=== PATIENT | male | born 2005 | race Caucasian/White ===

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

== ENCOUNTER 2024-05-12 18:58 | Emergency (ER) | payer MEDICAID, SELFPAY ==
[2024-05-12 18:59] VITALS: BP 154/106; PULSE 100; RESP 20; TEMP 37.5; O2SAT 96; BMI 19.8
--- NOTE | 2024-05-12 19:10 | EKG12_ITS ---
Test Reason : DYSRHYTHMIA Blood Pressure : / mmHG Vent. Rate : 088 BPM Atrial Rate : 088 BPM P-R Int : 126 ms QRS Dur : 080 ms QT Int : 364 ms P-R-T Axes : 068 055 067 degrees QTc Int : 440 ms Normal sinus rhythm with sinus arrhythmia Normal ECG Confirmed by RAFA IZAGUIRRE, REE ([id number]), clinical editor EDSON KC ([id number]) on 05/14/2024 8:06:46 AM Referred By: Confirmed By:REE CRAIG MD
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
[2024-05-12 19:19] LABS: Absolute Lymphocyte Count 1.47 X10^3/uL (0.83-4.51); Absolute Neutrophil Count 5.8 X10^3/uL (2.0-7.7); Basophil# 0.04 X10^3/uL; Basophil% 0.5 % (0-1); Eosinophil# 0.06 X10^3/uL; Eosinophils% 0.8 % (0-5); Hematocrit 45.9 % (40-54); Lymphocyte # 1.47 X10^3/ul (0.83-4.51); Lymphocyte % 18.7 % (19-41); Mean Corp Hgb Conc 34.9 g/dL (32-36); Mean Corpuscular Hgb 30.6 pg (27.0-32.0); Mean Corpuscular Volume 87.8 fL (80-94); Mean Platelet Vol. 10.9 fl (6.2-12.0); Monocyte# 0.47 X10^3/uL; NRBC Flagged by Analyzer 0 % (0-5); Neutrophil # 5.83 X10^3/uL (2.7-7.7); Neutrophil % 73.9 % (47-70); Platelet Count 207 K/mm3 (150-450); RBC Distribution Width CV 12.5 % (11.6-14.6); RBC Distribution Width SD 40.4 fl (35.1-43.9); Red Blood Count 5.23 M/mm3 (4.6-6.2); White Blood Count 7.9 K/mm3 (4.4-11.0)
[2024-05-12] MEDS: 0.9% Normal Saline (1000mL) 1,000 ML 999 ML IV (19:22)
[2024-05-12 19:38] LABS: ALB/GLOB Ratio 1.3 RATIO (0.9-2.4); AST(SGOT) 15 U/L (15-37); Alanine Aminotransfer ALT/SGPT 24 U/L (16-61); Albumin, Serum 4.3 g/dL (3.2-5.0); Alkaline Phosphatase 85 U/L (45-117); Anion Gap 10 (5-15); BUN 19 mg/dL (7-18); BUN/Creat Ratio 15.1 RATIO (10-20); Calcium,Total 8.9 mg/dL (8.5-10.1); Chloride 107 mmol/L (98-107); Creatinine, Serum 1.26 mg/dL (0.70-1.30); EST Glomerular Filtration Rate 77 mL/min (>60); Est Glom Filt Rate - Afr Amer 93 mL/min (>60); Estimated Creatinine Clearance 80.82 ml/min; Globulin 3.4 g/dL (2.2-4.2); Glucose 93 mg/dL (74-106); Potassium 3.7 mmol/L (3.5-5.1); Protein, Total 7.7 g/dL (6.4-8.2); Sodium Level 138 mmol/L (136-145); Troponin-I HS 5 pg/mL (3.0-78.0)
[2024-05-12] MEDS: hydrOXYzine 10 MG Tablet 25 MG PO (20:19)
[2024-05-12 20:21] VITALS: BP 159/120; PULSE 77; RESP 18; TEMP 36.6; O2SAT 99
== END 2024-05-12 20:22 | disposition home or self-care (01) ==
LOC: ED 20:05
PROVIDERS: Nurse Practitioner; Emergency Provider Emergency Medicine; Visit Provider Emergency Medicine
DX: R00.2 Palpitations (principal); F19.19 Other psychoactive substance abuse with unspecified psychoactive substance-induced disorder; F17.210 Nicotine dependence, cigarettes, uncomplicated; R07.9 Chest pain, unspecified; F12.90 Cannabis use, unspecified, uncomplicated
CPT/HCPCS: 80053; 84484; 85025; 93005; 96360; 99283; A4216

== ENCOUNTER 2025-03-22 19:52 | Emergency (ER) | payer MEDICAID, SELFPAY ==
[2025-03-22 19:53] VITALS: BP 154/100; PULSE 116; RESP 18; TEMP 36.4; O2SAT 100; BMI 18.9
--- NOTE | 2025-03-22 20:23 | EDS_ITS ---
HPI HPI - Psych History of Present Illness Chief Complaint: Mental Health PFSH PFSH Home Medications ?Medication ?Instructions ?Recorded ?Last Taken ?Type NK 05/12/24 Unknown History Allergy/AdvReac Type Severity Reaction Status Date / Time No Known Allergies Allergy Verified 03/22/25 19:53 Family History Mother Hypertension Diabetes Asthma Arthritis Social History Smoking Status: Current every day smoker tobacco type: cigarettes EXAM Physical Exam Const Vital Signs: 03/22/25 19:53 03/22/25 21:15 03/22/25 21:32 Temperature 97.6 F L Temperature Source Temporal Pulse Rate 116 H 102 H 92 Respiratory Rate 18 16 Blood Pressure 154/100 H 138/81 H Blood Pressure Mean 118 100 Pulse Ox 100 100 Oxygen Delivery Method Room Air Room Air 03/22/25 21:34 Temperature 98.2 F Temperature Source Pulse Rate 92 Respiratory Rate 16 Blood Pressure 138/78 H Blood Pressure Mean 98 Pulse Ox 99 Oxygen Delivery Method MDM MDM MDM Narrative Medical decision making narrative: HISTORY OF PRESENT ILLNESS: Chief complaint: Alcohol intoxication 19-year-old male presents with concern for homicidal ideation in setting of alcohol ingestion. P patient notes he was drinking earlier. Patient states to me that he is not desire to kill anyone or himself. He states he is not seeing or hearing things. Denies any physical complaints. States he was drinking prior to arrival but he is not that drunk. States his last drink was this afternoon. States he had 2 tall boys. He states he told officers that he wanted tocome to ED to get out of being arrested. Patient has no physical complaints at this time. REVIEW OF SYSTEMS: Pertinent positives: Alcohol intoxication Pertinent negatives: Suicidal ideation, homicidal ideation, auditory or visual hallucinations PHYSICAL EXAM: Nursing triage notes reviewed, Vital signs reviewed Constitutional: please see mdm HENT: MMM Eyes: Pupils equal round and reactive to light, Extraocular muscles intact Neck: No stridor, no JVD, full neck ROM Lungs: Clear to auscultation, No wheezing or rales. No increased work of breathing, no conversational dyspnea, no accessory muscle use, no nasal flaring. No respiratory distress noted Heart: Regular rate and rhythm, No murmurs, No rubs and No gallops, 2+ distal pulses (radial, femoral, posterior tibial) in all extremities Abdomen: Soft, there is no tenderness, rigidity, rebound or guarding, no obvious peritoneal signs, no palpable pulsatile abdominal masses, no auscultated abdominal bruit : No CVAT Extremities: No edema Neuro: No new focal neurological deficits, cranial nerves II through XII intact, 5/5 strength in all present extremities. Intact sensation to light touch in all present extremities, 2+ reflexes bilateral patella tendons. Skin: No rash or lesions noted Psych: Goal-directed thought process, does not appear to responding to internal stimuli. MEDICAL DECISION MAKING: Chief Complaint: please see HPI External records reviewed: Reviewed prior records Factors affecting care: none Social determinants of health: History of alcohol use History obtained from others: PD Consults: none [facility] Narrative: The patient was initially tachycardic otherwise afebrile and nontoxic-appearing he had a reassuring exam the patient did not appear clinically intoxicated. He denied suicidal, homicidal ideation, auditory or visual hallucinations. No indication for psychiatric hold or behavioral health consultation at this time. Will monitor the patient in the ED for clinical sobriety and determine final disposition based on re-evaluation. Upon re-evaluation patient appeared clinically sober. Repeat are improved from 116-92. He walks with a non-ataxic gait. He was alert and oriented. He continued to deny suicidal ideation, homicidal ideation, auditory or visual hallucinations. He was able to arrange for sober ride home. He was discharged stable condition with sober ride. The patient and/or family, caregivers express understanding. The patient and/or family, caregivers agrees with the plan. Shared decision making: I will have a discussion with the patient and or visitors regarding risk/benefits of further testing or admission. They will be made aware of of the risk/benefits inherent in this decision they will be given the opportunity to voice understanding. Total critical care time today provided was at least 0 minutes. This excludes separately billable procedures. Critical care time (if documented) is secondary to the patient having high probability of clinically significant/life threatening deterioration in the patient's condition which required my urgent intervention. Impression: 1. Alcohol intoxication 2. Encounter for mental health evaluation Dispo: Discharge home This note was generated with Smart Cubeation software. It may contain incorrect words, spelling, and punctuation that were not noted in review of the chart prior to signing. Discharge Plan Triage Chief Complaint: Mental Health ED Provider: Aren Yeager Dx/Rx/DC Orders Instructions: Psychiatric Evaluation Prescriptions: No Action NK Primary Care Provider: Care Physician,No Primary Referrals: Care Physician,No Primary [Primary Care Provider] - Activity Restrictions/Additional Instructions: Thank you for trusting us with your care today! Please take Tylenol (2 pills, 650 mg), ibuprofen (2 pills, 400 mg) every 6 hours as needed for pain and fever control. Please return to the emergency department if your symptoms change or worsen. Please follow with your primary care physician for further outpatient evaluation and management. Print Language: Tamazight Disposition Disposition: Home, Self Care Discharge Date/Time: 03/22/25 21:37
[2025-03-22 21:15] VITALS: BP 138/81; PULSE 102; RESP 16; O2SAT 100
[2025-03-22 21:32] VITALS: PULSE 92
[2025-03-22 21:34] VITALS: BP 138/78; PULSE 92; RESP 16; TEMP 36.8; O2SAT 99
== END 2025-03-22 21:37 | disposition home or self-care (01) ==
PROVIDERS: Emergency Provider Emergency Medicine; Referring Provider Emergency Medicine; Visit Provider Emergency Medicine
DX: F10.129 Alcohol abuse with intoxication, unspecified (principal); F17.210 Nicotine dependence, cigarettes, uncomplicated; Y90.9 Presence of alcohol in blood, level not specified
CPT/HCPCS: 99282